=== PATIENT | male | born 2000 | race Caucasian/White ===

== ENCOUNTER 2024-06-30 09:58 | Emergency (ER) | payer OTHER, SELFPAY ==
[2024-06-30 10:06] VITALS: BP 129/92; PULSE 93; RESP 16; TEMP 37; O2SAT 97; BMI 30.3
--- NOTE | 2024-06-30 11:45 | ED_ITS ---
HPI - Eye Problem General Chief complaint: Eye Problems Stated complaint: Eye irritation Time Seen by Provider: 06/30/24 11:29 Source: patient and RN notes reviewed Mode of arrival: ambulatory Limitations: no limitations History of Present Illness ED Provider: Roma Morin PA-C HPI Narrative: This is a 23-year-old male, with no known medical problems, who presents emergency department accompanied by his with concerns of right eye redness, itching, irritation watering this morning. Patient denies eye being crusted shut. He denies any foreign body sensation. He denies any severe eye pain. He denies any sick contacts with similar symptoms. Denies any fevers, chills, cough, chest pain, shortness breath, abdominal pain, nausea vomiting or diarrhea. No other complaints or concerns at this time. MD chief complaint: eye redness Onset (ago): hour(s) Onset description: sudden Duration: constant Location: right eye Eye Symptoms: itching, discharge and blurry vision Place: home Mechanism: none Associated symptoms: none Treatments Prior to Arrival: none Related Data Previous Rx's ?Medication ?Instructions ?Recorded erythromycin 5 mg/gram (0.5 %) eye 0.5 inch ophthalmic (eye) QID 7 06/30/24 ointment days #3.5 grams Allergies Allergy/AdvReac Type Severity Reaction Status Date / Time No Known Allergies Allergy Verified 06/30/24 10:09 Review of Systems Review of Systems: Yes all other systems are reviewed and are negative Constitutional: Constitutional: Reports as per [facility] Past Medical History Attestation statement: The following information was validated with the patient. Social History Social History Advance Directives: No Physical Exam Vital Signs: Vital Signs: Last Vital Signs Temp 98.6 F 06/30/24 10:06 Pulse 93 06/30/24 10:06 Resp 16 06/30/24 10:06 BP 129/92 H 06/30/24 10:06 Pulse Ox 97 06/30/24 10:06 O2 Del Method Room Air 06/30/24 10:06 BMI result Body Mass Index 30.3 Const: General: cooperative, comfortable and no acute distress Orientation/consciousness: patient oriented x3 Limitations: no limitations HEENT: Head: Yes normal to inspection, Yes normocephalic and Yes atraumatic Ears: hearing grossly normal bilaterally General nose exam: Normal external nose present Face and sinus: Yes normal facial exam Mouth: Normal oral and palatal mucosa present, oropharynx normal and moist mucous membranes Throat: Yes posterior oropharynx normal Eyes: Other: No fluorescein uptake within the right eye to suggest corneal abrasion or foreign body. Right eye conjunctiva is injected, with slight crusting noted to the right lower lid, and tearing noted. No pain with extraocular movements. Negative Mer sign. General: appearance normal, both eyes and all related structures Eyelids: Yes eyelids normal Sclerae: sclerae normal Neck: Neck: Yes normal visual inspection, Yes full ROM and Yes no lymphadenopathy Lymphatic: no lymphadenopathy noted Chest: Chest palpation & inspection: normal inspection of the chest Resp: Effort & Inspection: normal respiratory effort and able to speak in complete sentences Auscultation: clear to auscultation bilaterally, no crackles, no rales, no rhonchi and no wheezes Cardio: Rate: regular rate Rhythm: regular rhythm Heart sounds: S1 normal heart sound present and S2 normal heart sound present GI: Inspection: Yes normal to inspection Skin: General skin exam: no rashes or lesions noted Trauma: no lacerations or abrasions Wounds: no wounds Neuro: General: patient oriented x3 and moves all extremities Extrem: General: Yes normal to inspection Right upper extremity: normal to inspection Left upper extremity: normal to inspection Right lower extremity: normal to inspection Left lower extremity: normal to inspection Medications Administered Discontinued Medications Generic Name Dose Route Start Last Admin Trade Name Freq PRN Reason Stop Dose Admin Fluorescein Sodium 1 strip 06/30/24 11:48 06/30/24 12:05 Fluorescein Sodium Strip EYE-RIGHT 06/30/24 11:49 1 strip ONCE ONE Administration Tetracaine HCl 1 drop 06/30/24 11:48 06/30/24 12:05 Tetracaine Hcl/Pf 0.5% Oph Hanh 4 Ml Drops EYE-RIGHT 06/30/24 11:49 1 drop ONCE ONE Administration Medical Decision Making Medical Decision Making [facility] Narrative: This is a 23-year-old male, with no known medical problems, who presents emergency department complaints of right eye irritation, redness, itching since this morning. On arrival, vital signs within normal limits. Right conjunctiva is injected with increased hearing noted. No direct trauma to the eye. Differential diagnoses include conjunctivitis, corneal abrasion, laceration, foreign body, less likely orbital cellulitis, acute closed angle glaucoma. Physical exam revealing evidence of conjunctivitis, no corneal abrasion or laceration noted on fluorescein stain. Discussed findings with patient and at bedside. Given strict return precautions. Will discharge with erythromycin. He understands and agrees with plan. Patient stable for discharge. Differential Diagnosis Differential Diagnoses: The differential diagnosis associated with the presentation includes See above Admission/Observation Consideration of admission/observation: Escalation of care including admission/observation considered Radiology Impression Discussion of test interpretation with radiology: I have reviewed the radiologist's reading. External Record Review External record reviewed: Inpatient record, Office record, Outpatient record, Prior outpatient labs, Prior outpatient radiology, Primary care record and Outside ED record Discharge Plan Discharge Clinical Impression: Conjunctivitis Patient Disposition: Home, Self-Care Instructions: Conjunctivitis (ED) Additional Instructions: You were seen in the emergency department due to right eye redness and irritation. Your eye exam was reassuring today. You likely have conjunctivitis, it is unclear whether not this is viral or bacterial. Please use erythromycin ointment 4 times a day for the next 7 days. This may be contagious therefore it is very important that you wash her hands frequently and washed out any surfaces that you touch. If you develop any new or worsening symptoms including but not limited to worsening vision, severe eye pain, eye swelling, fevers, please return for re- evaluation. Prescriptions: New erythromycin 5 mg/gram (0.5 %) ointment 0.5 inch ophthalmic (eye) QID 7 Days Qty: 3.5 0RF Stand Alone Forms: Work/School Release Print Language: Georgian
[2024-06-30] MEDS: Tetracaine HCl/PF 0.5% Oph Sol 4 ML DROPS 1 DROP EYE-RIGHT (12:05)
[2024-06-30] MEDS: Fluorescein Sodium STRIP 1 STRIP EYE-RIGHT (12:05)
[2024-06-30 12:14] VITALS: BP 129/92; PULSE 98; RESP 18; TEMP 37; O2SAT 98
== END 2024-06-30 12:15 | disposition home or self-care (01) ==
PROVIDERS: Emergency Provider Emergency Medicine
DX: H10.9 Unspecified conjunctivitis (principal); H53.8 Other visual disturbances
CPT/HCPCS: 99282; 99283

== ENCOUNTER 2024-08-18 19:53 | Emergency (ER) | payer OTHER, SELFPAY ==
--- NOTE | ~2024-08-18 | XR_ITS ---
EXAMINATION: XR CHEST CLINICAL INFORMATION: Shortness of breath and cough COMPARISON: 11/21/2019 TECHNIQUE: Frontal view of the chest was obtained. FINDINGS: No significant abnormality is noted involving the heart, lungs, mediastinum, bony thorax or soft tissues. XR/XR chest 1V IMPRESSION: Unremarkable examination. Electronically signed by: Robert Grigsby MD 08/18/2024 09:53 PM EDT RP
[2024-08-18 19:56] VITALS: BP 114/77; PULSE 125; O2SAT 93
[2024-08-18 20:22] VITALS: BP 123/65; PULSE 107; RESP 24; TEMP 36.8; O2SAT 97
[2024-08-18 20:24] VITALS: BMI 38.4
[2024-08-18 21:13] LABS: IDNOW Serial# 08D9AD1C; Strep A Nucleic Acid Negative (Negative)
[2024-08-18 21:18] LABS: IDNOW Serial# 9DB6401D
[2024-08-18 21:19] LABS: COVID-19 Test Negative (Negative); IDNOW Serial# 9DB6401D; Influenza A Negative (Negative); Influenza B2 Negative (Negative)
[2024-08-18 22:54] VITALS: BP 110/74; PULSE 114; RESP 16; TEMP 36.8; O2SAT 96
[2024-08-18 23:29] VITALS: O2SAT 96
--- NOTE | 2024-08-19 00:13 | ED.GENADULT ---
HPI - General Adult General Chief complaint: Upper Respiratory Symptoms Stated complaint: sob, no hx of Asthma, gen malaise Time Seen by Provider: 08/19/24 00:06 Source: patient, RN notes reviewed and old records reviewed Mode of arrival: EMS Limitations: no limitations History of Present Illness ED Provider: Oliva CLOUD narrative: 23-year-old male who denies any past medical history presents for evaluation of shortness of breath. Patient reports his symptoms started last night with cough, congestion. He reports his symptoms were worse with minimal exertion. He called the ambulance today as he was experiencing worsening shortness of breath Denies any fevers, chills, sick contacts. Denies any recent travel Denies any personal or family history of thromboembolic disease Denies any leg swelling No other complaints or concerns at this time Related Data Previous Rx's ?Medication ?Instructions ?Recorded erythromycin 5 mg/gram (0.5 %) eye 0.5 inch ophthalmic (eye) QID 7 06/30/24 ointment days #3.5 grams azithromycin 250 mg tablet 250 mg PO DAILY 4 days #4 tabs 08/19/24 prednisone 20 mg tablet 40 mg (2 x 20 mg) PO DAILY #8 tabs 08/19/24 Allergies Allergy/AdvReac Type Severity Reaction Status Date / Time No Known Allergies Allergy Verified 08/18/24 20:26 Review of Systems Constitutional: Constitutional: Denies body ache(s), Denies chills and Denies fever(s) Eyes: Eyes: Denies blurry vision ENT: Denies vertigo, Denies dizziness and Denies sore throat Cardiovascular: Cardiovascular: Denies chest pain and Reports dyspnea Respiratory: Respiratory: Reports cough, Reports dyspnea and Denies wheezing Gastrointestinal: Gastrointestinal: Denies abdominal pain, Denies nausea and Denies vomiting Musculoskeletal: Musculoskeletal: Denies back pain Integumentary/Breasts: Skin/Breast: Denies rash Neurologic: Denies vertigo and Denies dizziness Allergic/Immunologic: Allergic/Immunologic: Denies wheezing [facility] Social History Social History Smoked in Last 30 Days: No Use of substances other than those prescribed or required for medical reasons: No Advance Directives: No Advance Directives Information Provided: No Do you have a plan to hurt others: No Plan Physical Exam ED Vital Signs: Vital Signs - 24 hr 08/18/24 20:22 08/18/24 22:54 08/18/24 23:29 Temperature 98.3 F 98.3 F Pulse Rate 107 H 114 H Respiratory Rate 24 H 16 Blood Pressure 123/65 110/74 Pulse Oximetry 97 96 96 Oxygen Delivery Method Nasal Cannula Room Air Room Air Oxygen Flow Rate 3 BMI result Body Mass Index 38.4 Const General: healthy appearing, comfortable, no acute distress, alert and awake Nutritional Appearance: well nourished Orientation/consciousness: patient oriented x3 HENMT Head: Yes normocephalic and Yes atraumatic Throat: Yes posterior oropharynx normal Eyes Eyelids: Yes eyelids normal Conjunctivae: conjunctivae normal Sclerae: sclerae normal Corneas: corneas normal Pupils: Equal, round and reactive pupils present EOM: EOMs intact bilaterally Neck Neck: Yes full ROM Resp Effort & Inspection: normal respiratory effort, able to speak in complete sentences, no audible wheezes and not labored Auscultation: clear to auscultation bilaterally Cardio Rate: regular rate Rhythm: regular rhythm Skin General skin exam: elasticity normal Neuro General: patient oriented x3 Cranial nerves: Yes Equal, round and reactive pupils present and Yes Bilaterally intact EOM present Cognition (Neuro): normal cognition Extrem Other: Moving all extremities well without any obvious deformities Medical Decision Making Medical Decision Making MDM Narrative: This is a healthy 23-year-old male presents for evaluation of shortness of breath. He is tachycardic to the 110's. He has no risk factors for PE, he has no chest pain, he is currently asymptomatic reports feeling better after having oxygen on for some time. He has never been hypoxic. He does have some congestion, postnasal drip, his lungs are clear to auscultation, chest x-ray clear viral swabs negative, his symptoms are likely related to an upper respiratory infection he will be treated accordingly with azithromycin and prednisone. Differential Diagnosis Differential Diagnoses: The differential diagnosis associated with the presentation includes Upper respiratory infection PE less likely Pneumonia CHF Anxiety Lab Data Labs: Lab Results 08/18/24 Range/Units 20:55 COVID-19 ([place]) Negative (Negative) COVID-19 Clin Com See Note Influenza Type A ([place]) Negative (Negative) Influenza Type B ([place]) Negative (Negative) Influenza A & B Note See Note S. pyogenes GrpA [place] Negative (Negative) Independent Interpretation I performed an independent interpretation of an: Plain X-Ray Interpretation: No focal infiltrates or effusions, no pneumothorax Radiology Impression Discussion of test interpretation with radiology: I have reviewed the radiologist's reading. Radiologist Impression: FINDINGS: No significant abnormality is noted involving the heart, lungs, mediastinum, bony thorax or soft tissues. XR/XR chest 1V IMPRESSION: Unremarkable examination. Discharge Plan Discharge Clinical Impression: Upper respiratory infection Patient Disposition: Home, Self-Care Instructions: Upper Respiratory Infection (ED) Additional Instructions: Your workup in the ER today was reassuring, your chest x-ray was clear, your viral swabs are negative. Take azithromycin 1 pill daily for the next 4 days starting tomorrow, take prednisone 40 mg daily. Your 1st doses were given in the ER Return for new or worsening symptoms Prescriptions: New azithromycin 250 mg tablet 250 mg PO DAILY 4 Days Qty: 4 0RF Rx Instructions: start on day 2 of therapy prednisone 20 mg tablet 40 mg PO DAILY Qty: 8 0RF No Action erythromycin 5 mg/gram (0.5 %) ointment 0.5 inch ophthalmic (eye) QID 7 Days Qty: 3.5 0RF Print Language: Luxembourger
[2024-08-19] MEDS: predniSONE 20 MG TABLET 40 MG PO (00:25)
[2024-08-19] MEDS: Azithromycin 500 MG TABLET PO (00:25)
[2024-08-19 00:26] VITALS: BP 110/74; PULSE 120; RESP 22; TEMP 37.1; O2SAT 96
== END 2024-08-19 00:32 | disposition home or self-care (01) ==
PROVIDERS: Emergency Provider Emergency Medicine
DX: J06.9 Acute upper respiratory infection, unspecified (principal); R06.02 Shortness of breath; R05.9 Cough, unspecified; R00.0 Tachycardia, unspecified; Z11.52 Encounter for screening for COVID-19
CPT/HCPCS: 71045; 87502; 87635; 87651; 99283; 99284